=== PATIENT | male | born 1960 | race Caucasian/White ===

== ENCOUNTER 2024-02-22 20:14 | Emergency (ER) | payer OTHER ==
[~2024-02-22] VITALS: Ht 175.3 cm; Wt 81.1 kg
[~2024-02-22 20:14] MED LIST: ASPI-255 PO; CLEO300C2 PO; LISI10TA22 PO; VENL75CA2 PO
[2024-02-23] MEDS: CEPHALEXIN 500 MG CAP PO ONE (01:12)
[2024-02-23] MEDS: BOOSTRIX VACCINE (TETANUS/DIPHTH/ACEL. PERTUSSIS) 0.5ML SYR IM ONE (01:13)
[2024-02-23] MEDS: LIDOCAINE 1% MDV 20ML VIAL SC ONE (01:14)
[2024-02-23] MEDS ORDERED: CEPH500C PO (01:43)
[2024-02-23 02:01] VITALS: BP 128/79; TEMP 96.8; O2SAT 99
== END 2024-02-23 02:02 | disposition home or self-care (01) ==
LOC: M ED 20:14
DX: S61.412A Laceration without foreign body of left hand, initial encounter (principal); Y92.019 Unspecified place in single-family (private) house as the place of occurrence of the external cause; Y93.9 Activity, unspecified; Y99.9 Unspecified external cause status; W22.8XXA Striking against or struck by other objects, initial encounter; Z88.1 Allergy status to other antibiotic agents; Z79.1 Long term (current) use of non-steroidal anti-inflammatories (NSAID); Z79.2 Long term (current) use of antibiotics; Z79.899 Other long term (current) drug therapy; Z23 Encounter for immunization